=== PATIENT | female | born 1985 | race Caucasian/White ===

== ENCOUNTER 2019-11-23 18:07 | Emergency (ER) | payer MEDICAID ==
[~2019-11-23] VITALS: Ht 167.6 cm; Wt 99.8 kg
[2019-11-23 18:32] VITALS: Ht 167.6 cm; Wt 99.8 kg
[2019-11-23 21:11] VITALS: BP 128/75
== END 2019-11-23 21:11 | disposition home or self-care (01) ==
LOC: ED 18:07
DX: N76.0 Acute vaginitis (principal); B96.89 Other specified bacterial agents as the cause of diseases classified elsewhere; Z98.890 Other specified postprocedural states
CPT/HCPCS: 87491; 87591

== ENCOUNTER 2019-12-05 13:05 | Emergency (ER) | payer MEDICAID ==
[~2019-12-05] VITALS: Ht 167.6 cm; Wt 98.0 kg
[2019-12-05 14:02] VITALS: Ht 167.6 cm; Wt 98.0 kg
[2019-12-05 16:34] LABS: ALBUMIN 3.8 g/dL (3.4-5.0); ALKALINE PHOSPHATASE 104 U/L (46-116); ALT/SGPT 43 U/L (14-59); AST/SGOT 26 U/L (15-37); BILIRUBIN TOTAL 0.2 mg/dL (0.20-1.00); CALCIUM 9.5 mg/dL (8.5-10.1); CARBON DIOXIDE 25.8 mmol/L (21-32); CHLORIDE SERUM 97 mmol/L (98-107); CREATININE SERUM 0.9 mg/dL (0.6-1.0); GFR1 > 60 mL/min; POTASSIUM SERUM 4.2 mmol/L (3.5-5.1); SODIUM SERUM 133 mmol/L (136-145); TOTAL PROTEIN, SERUM 8.2 g/dL (6.4-8.2)
[2019-12-05 16:37] LABS: GLUCOSE SERUM 459 mg/dL (74-106)
[2019-12-05 17:37] VITALS: BP 135/89
== END 2019-12-05 17:37 | disposition home or self-care (01) ==
LOC: ED 13:05
PROVIDERS: Emergency Medicine
DX: N76.0 Acute vaginitis (principal); E11.9 Type 2 diabetes mellitus without complications; Z90.49 Acquired absence of other specified parts of digestive tract
CPT/HCPCS: 82962; J1815; J7030